=== PATIENT | female | born 1960 | race Caucasian/White ===

== ENCOUNTER → 2024-02-23 07:43 | Outpatient (REF) | payer BC, SELFPAY | LOC: HWWDC 07:43 | PROVIDERS: ATTENDING PHYSICIAN Internal Medicine | DX: Z12.31 Encounter for screening mammogram for malignant neoplasm of breast (principal) | CPT/HCPCS: 77063; 77067 ==

== ENCOUNTER → 2024-08-03 08:43 | Outpatient (REF) | payer BC, SELFPAY | LOC: RCS 08:43 | PROVIDERS: ATTENDING PHYSICIAN Internal Medicine | DX: R00.2 Palpitations (principal) | CPT/HCPCS: 93225; 93226 ==

== ENCOUNTER → 2024-08-05 08:52 | Outpatient (REF) | payer BC, SELFPAY | LOC: RAD 08:52 | PROVIDERS: ATTENDING PHYSICIAN Internal Medicine | DX: R91.1 Solitary pulmonary nodule (principal); R22.32 Localized swelling, mass and lump, left upper limb | CPT/HCPCS: 73140 ==